=== PATIENT | female | born 1930 | race Caucasian/White ===

== ENCOUNTER 2016-08-23 16:08 | Inpatient (IN) | payer MEDICARE ==
[2016-08-28 15:55] VITALS: BMI 59.8
[2016-08-28] MEDS: Allopurinol 100 MG TAB PO SCH (20:33)
[2016-08-28] MEDS: TROSPIUM 20 MG TABLET PO SCH (20:33)
[2016-08-28] MEDS: Carvedilol 12.5 MG TAB PO SCH (20:33)
[2016-08-28] MEDS: Cephalexin 250 MG CAP PO SCH (20:34)
[2016-08-29] MEDS: Enoxaparin Sodium 30 MG/0.3 ML SYRINGE SC SCH (05:56)
[2016-08-29] MEDS ORDERED: Nystatin Powder 15 GM BOT TOP PRN (07:25)
[2016-08-29] MEDS: Potassium Chloride 10 MEQ TAB PO SCH (09:13)
[2016-08-29] MEDS: Cephalexin 250 MG CAP PO SCH ×3 (09:13→20:13)
[2016-08-29] MEDS: TROSPIUM 20 MG TABLET PO SCH ×2 (09:13→20:13)
[2016-08-29] MEDS: Carvedilol 12.5 MG TAB PO SCH ×2 (09:14→20:12)
[2016-08-29] MEDS: Furosemide 40 MG TAB PO SCH (09:15)
[2016-08-29] MEDS: Allopurinol 100 MG TAB PO SCH ×2 (09:15→20:11)
[2016-08-29] MEDS: Lisinopril 10 MG TAB PO SCH (09:15)
[2016-08-30] MEDS: Enoxaparin Sodium 30 MG/0.3 ML SYRINGE SC SCH (05:58)
[2016-08-30] MEDS: Potassium Chloride 10 MEQ TAB PO SCH (08:46)
[2016-08-30] MEDS: Allopurinol 100 MG TAB PO SCH ×2 (08:47→21:15)
[2016-08-30] MEDS: Carvedilol 12.5 MG TAB PO SCH ×2 (08:47→21:15)
[2016-08-30] MEDS: Cephalexin 250 MG CAP PO SCH ×3 (08:48→21:15)
[2016-08-30] MEDS: Furosemide 40 MG TAB PO SCH (08:50)
[2016-08-30] MEDS: Lisinopril 10 MG TAB PO SCH (08:51)
[2016-08-30] MEDS: TROSPIUM 20 MG TABLET PO SCH ×2 (08:51→21:15)
[2016-08-31] MEDS: Enoxaparin Sodium 30 MG/0.3 ML SYRINGE SC SCH (06:38)
[2016-08-31] MEDS: Lisinopril 10 MG TAB PO SCH (09:33)
[2016-08-31] MEDS: Furosemide 40 MG TAB PO SCH (09:34)
[2016-08-31] MEDS: Carvedilol 12.5 MG TAB PO SCH ×2 (09:34→20:38)
[2016-08-31] MEDS: TROSPIUM 20 MG TABLET PO SCH ×2 (09:35→20:39)
[2016-08-31] MEDS: Potassium Chloride 10 MEQ TAB PO SCH (09:35)
[2016-08-31] MEDS: Allopurinol 100 MG TAB PO SCH ×2 (09:35→20:38)
[2016-09-01] MEDS: Enoxaparin Sodium 30 MG/0.3 ML SYRINGE SC SCH (05:29)
[2016-09-01] MEDS: Potassium Chloride 10 MEQ TAB PO SCH (09:32)
[2016-09-01] MEDS: TROSPIUM 20 MG TABLET PO SCH ×2 (09:32→20:57)
[2016-09-01] MEDS: Furosemide 40 MG TAB PO SCH (09:33)
[2016-09-01] MEDS: Carvedilol 12.5 MG TAB PO SCH ×2 (09:33→20:57)
[2016-09-01] MEDS: Allopurinol 100 MG TAB PO SCH ×2 (09:33→20:57)
[2016-09-01] MEDS: Lisinopril 10 MG TAB PO SCH (09:34)
[2016-09-01] MEDS ORDERED: Bisacodyl 10 MG SUPP PR PRN (14:30)
[2016-09-01] MEDS: Milk Of Magnesia 30 ML UDCUP PO PRN (17:55)
[2016-09-01] MEDS: Docusate 100 MG CAP PO SCH (20:57)
[2016-09-02] MEDS: Enoxaparin Sodium 30 MG/0.3 ML SYRINGE SC SCH (05:45)
[2016-09-02] MEDS: Potassium Chloride 10 MEQ TAB PO SCH (08:32)
[2016-09-02] MEDS: Furosemide 40 MG TAB PO SCH (08:33)
[2016-09-02] MEDS: Carvedilol 12.5 MG TAB PO SCH ×2 (08:33→21:04)
[2016-09-02] MEDS: Lisinopril 10 MG TAB PO SCH (08:34)
[2016-09-02] MEDS: Allopurinol 100 MG TAB PO SCH ×2 (08:34→21:04)
[2016-09-02] MEDS: TROSPIUM 20 MG TABLET PO SCH ×2 (08:39→21:04)
[2016-09-02] MEDS: Docusate 100 MG CAP PO SCH ×2 (08:39→21:04)
[2016-09-02] MEDS: Milk Of Magnesia 30 ML UDCUP PO PRN (08:39)
[2016-09-03] MEDS: Enoxaparin Sodium 30 MG/0.3 ML SYRINGE SC SCH (06:26)
[2016-09-03] MEDS: Potassium Chloride 10 MEQ TAB PO SCH (09:13)
[2016-09-03] MEDS: TROSPIUM 20 MG TABLET PO SCH ×2 (09:14→20:52)
[2016-09-03] MEDS: Allopurinol 100 MG TAB PO SCH ×2 (09:14→20:53)
[2016-09-03] MEDS: Lisinopril 10 MG TAB PO SCH (09:14)
[2016-09-03] MEDS: Carvedilol 12.5 MG TAB PO SCH ×2 (09:14→20:53)
[2016-09-03] MEDS: Docusate 100 MG CAP PO SCH ×2 (09:14→20:53)
[2016-09-03] MEDS: Furosemide 40 MG TAB PO SCH (09:15)
[2016-09-04] MEDS: Enoxaparin Sodium 30 MG/0.3 ML SYRINGE SC SCH (05:46)
[2016-09-04] MEDS: Lisinopril 10 MG TAB PO SCH (09:39)
[2016-09-04] MEDS: Allopurinol 100 MG TAB PO SCH ×2 (09:39→21:27)
[2016-09-04] MEDS: TROSPIUM 20 MG TABLET PO SCH ×2 (09:40→21:27)
[2016-09-04] MEDS: Carvedilol 12.5 MG TAB PO SCH ×2 (09:41→21:25)
[2016-09-04] MEDS: Furosemide 40 MG TAB PO SCH (09:42)
[2016-09-04] MEDS: Docusate 100 MG CAP PO SCH ×2 (09:43→21:27)
[2016-09-04] MEDS: Potassium Chloride 10 MEQ TAB PO SCH (09:43)
[2016-09-05] MEDS: Enoxaparin Sodium 30 MG/0.3 ML SYRINGE SC SCH (05:54)
[2016-09-05] MEDS: Allopurinol 100 MG TAB PO SCH ×2 (08:48→21:08)
[2016-09-05] MEDS: Carvedilol 12.5 MG TAB PO SCH ×2 (08:49→21:06)
[2016-09-05] MEDS: TROSPIUM 20 MG TABLET PO SCH ×2 (08:49→21:06)
[2016-09-05] MEDS: Lisinopril 10 MG TAB PO SCH (08:49)
[2016-09-05] MEDS: Potassium Chloride 10 MEQ TAB PO SCH (08:50)
[2016-09-05] MEDS: Furosemide 40 MG TAB PO SCH (08:51)
[2016-09-05] MEDS: Docusate 100 MG CAP PO SCH ×2 (08:51→21:08)
[2016-09-05] MEDS ORDERED: cloNIDine HCl 0.1 MG TAB PO PRN (16:50)
[2016-09-06] MEDS: Milk Of Magnesia 30 ML UDCUP PO PRN (00:23)
[2016-09-06] MEDS: Enoxaparin Sodium 30 MG/0.3 ML SYRINGE SC SCH (06:36)
[2016-09-06 07:02] VITALS: TEMP 97.9
[2016-09-06] MEDS: Carvedilol 12.5 MG TAB PO SCH (09:32)
[2016-09-06] MEDS: Potassium Chloride 10 MEQ TAB PO SCH (09:34)
[2016-09-06] MEDS: Lisinopril 10 MG TAB PO SCH (09:36)
[2016-09-06] MEDS: Docusate 100 MG CAP PO SCH (09:36)
[2016-09-06] MEDS: Furosemide 40 MG TAB PO SCH (09:37)
[2016-09-06] MEDS: Allopurinol 100 MG TAB PO SCH (09:37)
[2016-09-06] MEDS: TROSPIUM 20 MG TABLET PO SCH (11:42)
[2016-09-06 18:17] VITALS: BP 152/68
--- NOTE | 2016-09-07 03:56 | DIS ---
DATE OF ADMISSION: 08/28/2016 DATE OF DISCHARGE: 09/06/2016 ADMISSION DIAGNOSES: Right lower extremity cellulitis, abdominal skin lesions and physical deconditioning. SECONDARY DIAGNOSES: Morbid obesity, chronic systolic congestive heart failure , chronic kidney disease stage 3, hypertension and atrial fibrillation. PROCEDURES: None. HOSPITAL COURSE: This is an 85-year-old female, who presented to our facility as a swing patient status post admission at [facility] where she was treated for right lower extremity cellulitis and [id number] kidney disease. Initially, she was placed on broad-spectrum antibiotics after failing outpatient therapy; she was subsequently transitioned to oral Keflex for the cellulitis, which was continued at our facility and completed per advised duration of therapy. The patient did experience resolution of her cellulitis and remained afebrile throughout her stay. Her renal function had basically returned back to baseline prior to her transfer as well. The patient does have morbid obesity and did have associated physical deconditioning related to her hospital admission, thus she was able to participate with PT, OT during her stay. The patient typically lives alone; however, as noted, she is morbidly obese with advanced age with some question of memory impairment, although a mini mental status exam score during her stay was 29/30; however, due to her aforementioned medical issues and concern for the patient to unsatisfactorily perform ADL's discussion was had with the family and it was decided to transfer the [place]. The patient is hemodynamically stable and appropriate for discharge at this time. DISPOSITION: The patient will discharge to [facility] to receive skilled care with potential transition to a long-term care. DISCHARGE MEDICATIONS: Potassium chloride 10 mEq p.o. daily, Cymbalta 60 mg p.o. daily, aspirin 81 mg p.o. daily, amlodipine 5 mg p.o. daily, Lasix 40 mg p.o. daily, lisinopril 20 mg p.o. daily, albuterol sulfate 2 puffs q.4 hours p.r.n., DuoNeb q.6 hours p.r.n., tolterodine tartrate extended release 2 mg p.o. daily, allopurinol 100 mg 2 tabs p.o. daily, carvedilol 6.25 mg b.i.d., and clonidine 0.1 mg p.o. b.i.d. p.r.n. systolic blood pressure greater than 160 or diastolic blood pressure greater than 100. MTDD
== END 2016-09-06 19:10 | DRG 603 ==
LOC: BURMED 08-28 15:00
PROVIDERS: ADMIT Family Medicine; ATTEND Family Medicine
DX: L03.115 Cellulitis of right lower limb (principal); I50.22 Chronic systolic (congestive) heart failure; I13.0 Hypertensive heart and chronic kidney disease with heart failure and stage 1 through stage 4 chronic kidney disease, or unspecified chronic kidney disease; I48.91 Unspecified atrial fibrillation; E66.01 Morbid (severe) obesity due to excess calories; N18.3 Chronic kidney disease, stage 3 (moderate); Z66 Do not resuscitate
CPT/HCPCS: G8978-GP-CI; G8979-GP-CI; G8987-GO-CM; G8988-GO-CJ; J1650

== ENCOUNTER 2016-12-23 15:19 | Outpatient (CLI) | payer MEDICARE ==
--- NOTE | 2016-12-23 23:28 | RAD ---
LEFT KNEE THREE VIEWS: 12/23/16 Moderately severe osteoarthritis is present with medial joint space narrowing, osteophytes and scler osis. Patellofemoral osteophytes are present. There does not appear to be a significant joint effusi on. IMPRESSION: Degenerative changes as noted. POS: HOME
--- NOTE | 2016-12-23 23:31 | RAD ---
LEFT HIP TWO VIEWS: 12/23/16 No fracture or area of bony destruction was seen. The joint space is normal in width. There is some minor bony spurring in this joint, but arthritic changes are truly minimal for age. The adjacent pub ic ring appears intact. IMPRESSION: No acute findings in the hip. POS: HOME
--- NOTE | 2016-12-23 23:32 | RAD ---
LEFT FEMUR 12/23/16 AP and lateral views cover the femur. No fracture or area of bony destruction was seen. There are pr ominent degenerative changes in the knee joint consisting of medial joint space narrowing, osteophyt es, and some bony sclerosis. The patellofemoral joint also appears involved. I do not see any large joint effusion. Arteriosclerotic change is seen in the femoral vessels. IMPRESSION: No acute bony findings. Moderately severe medial knee arthritis. POS: HOME
== END 2016-12-23 15:20 | disposition home or self-care (01) ==
LOC: BURRAD 15:19
PROVIDERS: ATTEND Family Medicine
DX: M25.562 Pain in left knee (principal); M17.12 Unilateral primary osteoarthritis, left knee; M79.652 Pain in left thigh; M25.552 Pain in left hip

== ENCOUNTER 2016-12-27 15:01 | Outpatient (CLI) | payer MEDICARE | END 2016-12-27 15:02 | disposition home or self-care (01) | LOC: HPCALD 15:01 | PROVIDERS: ATTEND Family Medicine | DX: R53.81 Other malaise (principal) | CPT/HCPCS: 36415; 85379 ==